=== PATIENT | female | born 1940 | race Caucasian/White ===

== ENCOUNTER 2023-06-21 13:06 | Inpatient (IN) | payer MEDICARE, OTHER ==
[~2023-06-21] VITALS: Ht 165.1 cm; Wt 65.8 kg
[2023-06-21] MEDS ORDERED: NA P133E RC (14:16)
[2023-06-21] MEDS ORDERED: LORA-258 PO (14:16)
[2023-06-21] MEDS ORDERED: MAGN400O6 PO (14:16)
[2023-06-21] MEDS ORDERED: QUET50TA PO (14:16)
[2023-06-21] MEDS ORDERED: DOCU100T2 PO (14:16)
[2023-06-21] MEDS ORDERED: TRAZ-257 PO (14:16)
[2023-06-21] MEDS ORDERED: ATOR10TA PO (14:16)
[2023-06-21] MEDS ORDERED: ACET-868 PO (14:16)
[2023-06-21] MEDS ORDERED: IBUP-1953 PO (14:16)
[2023-06-21] MEDS ORDERED: HYDR25SU33 RC (14:16)
[2023-06-21] MEDS ORDERED: CARV3.12 PO (14:16)
[2023-06-21] MEDS ORDERED: ACET-2605 PO ×2 (14:16)
[2023-06-21] MEDS ORDERED: LACT10SO5 PO (14:16)
[2023-06-21] MEDS ORDERED: VITA1TAB20 PO (14:16)
[2023-06-21] MEDS ORDERED: DULO60CA45 PO (14:16)
[2023-06-21] MEDS ORDERED: BISA10SU11 RC (14:16)
[2023-06-21 15:08] LABS: BASOPHILS % (AUTO) 0.7 % (0.0-2.0); EOSINOPHILS # (AUTO) 0.1 K/uL (0.0-0.7); EOSINOPHILS % (AUTO) 2.2 % (0.0-6.0); HEMATOCRIT 36 % (33-45); HEMOGLOBIN 12.3 g/dL (11.5-14.8); LYMPHOCYTES # (AUTO) 1.1 K/uL (0.8-4.8); LYMPHOCYTES % (AUTO) 23.9 % (20.0-44.0); MEAN CORPUSCULAR HEMOGLOBIN 32 PG (26.0-33.0); MEAN CORPUSCULAR HGB CONC 34 g/dl (31.0-36.0); MEAN CORPUSCULAR VOLUME 96 fL (82-100); MONOCYTES # (AUTO) 0.4 K/uL (0.1-1.30); MONOCYTES % (AUTO) 8.5 % (2.0-12.0); NEUTROPHILS % (AUTO) 64.7 % (43.0-81.0); PLATELET COUNT (AUTO) 302 K/uL (150-450); RED BLOOD CELL COUNT(AUTO) 3.78 MIL/uL (4.0-5.2); RED CELL DISTRIBUTION WIDTH 13.1 % (11.5-15.0); WHITE BLOOD COUNT (AUTO) 4.6 K/uL (4.3-11.0)
[2023-06-21 15:24] LABS: CALCIUM, SERUM 9.2 mg/dL (8.5-10.1); CARBON DIOXIDE 29 mmol/L (21-32); CHLORIDE 101 mmol/L (98-107); CREATININE 0.6 mg/dL (0.6-1.3); GLUCOSE 92 mg/dL (74-106); POTASSIUM 3.7 mmol/L (3.5-5.1); SODIUM SERUM 137 mmol/L (136-145); UREA NITROGEN, BLOOD 21 mg/dL (7-18)
[2023-06-21 15:28] LABS: ACETAMINOPHEN < 10 ug/ml (10-30); ALANINE AMINOTRANSFERASE 13 U/L (12-78); ALBUMIN 3.3 g/dL (3.4-5.0); ALCOHOL, BLOOD < 3 mg/dL (0-10); ALKALINE PHOSPHATASE 75 U/L (46-116); ASPARTATE AMINOTRANSFERASE 12 U/L (15-37); BILIRUBIN,DIRECT 0.2 mg/dL (0.0-0.2); BILIRUBIN,TOTAL 0.5 mg/dL (0.2-1.0); TOTAL PROTEIN, SERUM 6.8 g/dL (6.4-8.2)
[2023-06-21 15:29] LABS: SALICYLATE 2.2 mg/dL (2.8-20.0)
[2023-06-21] MEDS ORDERED: ZOLPIDEM TARTRATE 5 MG TABLET PO PRN (21:00)
[2023-06-21] MEDS ORDERED: LORAZEPAM 0.5 MG TABLET PO PRN (21:00)
[2023-06-21] MEDS ORDERED: BLOOD SUGAR DIAGNOSTIC 1 EACH STRIP IN ONE (21:00)
[2023-06-21] MEDS ORDERED: ACETAMINOPHEN 325 MG TABLET PO PRN ×2 (21:00→22:30)
[2023-06-21] MEDS ORDERED: ACETAMINOPHEN ES 500 MG TABLET PO PRN (22:30)
[2023-06-21] MEDS ORDERED: BISACODYL SUPP (10 MG) 10 MG/SUPP.RECT SUPP.RECT RC PRN (22:30)
[2023-06-21 23:47] VITALS: BP 135/69; TEMP 98.2
[2023-06-22] MEDS: ACETAMINOPHEN ES 500 MG TABLET PO PRN (04:11)
[2023-06-22 07:52] LABS: CREATININE 0.7 mg/dL (0.6-1.3)
[2023-06-22 08:00] VITALS: BP 176/97; TEMP 97.8; O2SAT 99
[2023-06-22] MEDS ORDERED: CARVEDILOL 3.125 MG TABLET PO SCH (09:00)
[2023-06-22] MEDS ORDERED: DULOXETINE HCL 30 MG CAPSULE.DR PO SCH (09:00)
[2023-06-22] MEDS: VITAMIN B COMP W-C 1 TAB TABLET PO SCH (09:09)
[2023-06-22] MEDS: DOCUSATE SODIUM 100 MG CAPSULE PO SCH ×2 (09:09→17:00)
[2023-06-22] MEDS: ESCITALOPRAM OXALATE (10 MG) 10 MG TABLET PO SCH (11:05)
[2023-06-22] MEDS: LORAZEPAM 1 MG TABLET PO PRN ×2 (11:05→19:54)
[2023-06-22] MEDS: OLANZAPINE 2.5 MG TABLET PO SCH ×2 (12:34→16:55)
[2023-06-22] MEDS: MEMANTINE HCL 5 MG TABLET PO SCH (20:14)
[2023-06-22] MEDS: CARVEDILOL 3.125 MG TABLET PO SCH (20:14)
[2023-06-22 20:32] VITALS: BP 150/82; TEMP 97.9; O2SAT 98
[2023-06-22] MEDS: ATORVASTATIN 10 MG TABLET PO SCH (21:29)
[2023-06-22] MEDS: MIRTAZAPINE 15 MG TABLET PO SCH (21:29)
[2023-06-22] MEDS ORDERED: TRAZODONE 50 MG TABLET PO SCH (22:00)
[2023-06-23 08:00] VITALS: BP 128/72; TEMP 98; O2SAT 94
[2023-06-23] MEDS: ESCITALOPRAM OXALATE (10 MG) 10 MG TABLET PO SCH (08:54)
[2023-06-23] MEDS: VITAMIN B COMP W-C 1 TAB TABLET PO SCH (08:54)
[2023-06-23] MEDS: DOCUSATE SODIUM 100 MG CAPSULE PO SCH ×2 (08:54→16:38)
[2023-06-23] MEDS: OLANZAPINE 2.5 MG TABLET PO SCH ×2 (08:54→16:38)
[2023-06-23] MEDS: MEMANTINE HCL 5 MG TABLET PO SCH ×2 (08:54→20:56)
[2023-06-23] MEDS: CARVEDILOL 3.125 MG TABLET PO SCH ×2 (08:55→16:39)
[2023-06-23] MEDS: busPIRone 5 MG TABLET PO SCH ×3 (11:57→16:38)
[2023-06-23] MEDS: LORAZEPAM 1 MG TABLET PO PRN (12:06)
[2023-06-23 16:00] VITALS: BP 148/76; TEMP 97.7; O2SAT 98
[2023-06-23 20:00] VITALS: BP 132/61; TEMP 98.4; O2SAT 99
[2023-06-23 22:00] VITALS: BP 132/61
[2023-06-23] MEDS: MIRTAZAPINE 15 MG TABLET PO SCH (22:00)
[2023-06-23] MEDS: ATORVASTATIN 10 MG TABLET PO SCH (22:01)
[2023-06-24 08:00] VITALS: BP 151/64; TEMP 97.6; O2SAT 96
[2023-06-24] MEDS: DOCUSATE SODIUM 100 MG CAPSULE PO SCH ×2 (08:39→16:08)
[2023-06-24] MEDS: ESCITALOPRAM OXALATE (10 MG) 10 MG TABLET PO SCH (08:41)
[2023-06-24] MEDS: OLANZAPINE 2.5 MG TABLET PO SCH ×2 (08:41→16:09)
[2023-06-24] MEDS: CARVEDILOL 3.125 MG TABLET PO SCH ×2 (08:42→16:09)
[2023-06-24] MEDS: MEMANTINE HCL 5 MG TABLET PO SCH ×2 (08:42→20:44)
[2023-06-24] MEDS: LORAZEPAM 1 MG TABLET PO PRN (08:42)
[2023-06-24] MEDS: busPIRone 5 MG TABLET PO SCH ×3 (08:42→16:08)
[2023-06-24] MEDS: VITAMIN B COMP W-C 1 TAB TABLET PO SCH (08:43)
[2023-06-24] MEDS: Z GUARD REMEDY 4 OZ OINT TP SCH ×2 (10:13→17:29)
[2023-06-24] MEDS: GABAPENTIN 100 MG CAPSULE PO SCH ×2 (12:11→16:10)
[2023-06-24 16:00] VITALS: BP 132/71; TEMP 97.8; O2SAT 96
[2023-06-24 20:17] VITALS: BP 107/52; TEMP 97.9; O2SAT 98
[2023-06-24 22:00] VITALS: BP 127/52
[2023-06-24] MEDS: MIRTAZAPINE 15 MG TABLET PO SCH (22:18)
[2023-06-24] MEDS: ATORVASTATIN 10 MG TABLET PO SCH (22:18)
[2023-06-25 08:00] VITALS: BP 159/87; TEMP 97.4; O2SAT 98
[2023-06-25] MEDS: ESCITALOPRAM OXALATE (10 MG) 10 MG TABLET PO SCH (09:01)
[2023-06-25] MEDS: busPIRone 5 MG TABLET PO SCH ×3 (09:01→17:09)
[2023-06-25] MEDS: GABAPENTIN 100 MG CAPSULE PO SCH ×3 (09:01→17:06)
[2023-06-25] MEDS: MEMANTINE HCL 5 MG TABLET PO SCH ×2 (09:01→21:10)
[2023-06-25] MEDS: CARVEDILOL 3.125 MG TABLET PO SCH ×2 (09:02→17:00)
[2023-06-25] MEDS: DOCUSATE SODIUM 100 MG CAPSULE PO SCH ×2 (09:02→17:06)
[2023-06-25] MEDS: OLANZAPINE 2.5 MG TABLET PO SCH ×2 (09:03→17:06)
[2023-06-25] MEDS: Z GUARD REMEDY 4 OZ OINT TP SCH ×2 (09:03→17:08)
[2023-06-25] MEDS: VITAMIN B COMP W-C 1 TAB TABLET PO SCH (09:03)
[2023-06-25 10:00] VITALS: BP 159/87
[2023-06-25 16:00] VITALS: BP 113/68; TEMP 97.4; O2SAT 94
[2023-06-25] MEDS: LACTULOSE 10 G/15 ML UDC (PYXIS) PO SCH (17:06)
[2023-06-25 20:00] VITALS: BP 111/65; TEMP 98.2; O2SAT 98
[2023-06-25 22:00] VITALS: BP 111/65
[2023-06-25] MEDS: MIRTAZAPINE 15 MG TABLET PO SCH (22:18)
[2023-06-25] MEDS: ATORVASTATIN 10 MG TABLET PO SCH (22:18)
[2023-06-26] MEDS ORDERED: Z GUARD REMEDY 4 OZ OINT TP PRN
[2023-06-26 08:00] VITALS: BP 132/63; TEMP 97.8; O2SAT 93
[2023-06-26] MEDS: LACTULOSE 10 G/15 ML UDC (PYXIS) PO SCH ×2 (08:41→17:13)
[2023-06-26] MEDS: DOCUSATE SODIUM 100 MG CAPSULE PO SCH ×2 (08:41→17:13)
[2023-06-26] MEDS: busPIRone 5 MG TABLET PO SCH ×3 (08:41→17:13)
[2023-06-26] MEDS: GABAPENTIN 100 MG CAPSULE PO SCH ×3 (08:42→17:13)
[2023-06-26] MEDS: ESCITALOPRAM OXALATE (10 MG) 10 MG TABLET PO SCH (08:42)
[2023-06-26] MEDS: OLANZAPINE 2.5 MG TABLET PO SCH ×2 (08:42→17:13)
[2023-06-26] MEDS: VITAMIN B COMP W-C 1 TAB TABLET PO SCH (08:42)
[2023-06-26] MEDS: CARVEDILOL 3.125 MG TABLET PO SCH ×2 (08:42→17:14)
[2023-06-26] MEDS: MEMANTINE HCL 5 MG TABLET PO SCH ×2 (08:42→21:51)
[2023-06-26] MEDS: Z GUARD REMEDY 4 OZ OINT TP SCH ×2 (08:43→17:14)
[2023-06-26] MEDS: LORAZEPAM 1 MG TABLET PO PRN (14:02)
[2023-06-26 16:00] VITALS: BP 130/68; TEMP 97.9; O2SAT 97
[2023-06-26 21:19] VITALS: BP 109/54; TEMP 98; O2SAT 98
[2023-06-26] MEDS: MIRTAZAPINE 15 MG TABLET PO SCH (21:51)
[2023-06-26] MEDS: ATORVASTATIN 10 MG TABLET PO SCH (21:51)
[2023-06-27 08:00] VITALS: BP 136/73; TEMP 97.7; O2SAT 99
[2023-06-27] MEDS: LACTULOSE 10 G/15 ML UDC (PYXIS) PO SCH ×2 (08:53→16:03)
[2023-06-27] MEDS: GABAPENTIN 100 MG CAPSULE PO SCH ×3 (08:53→16:04)
[2023-06-27] MEDS: MEMANTINE HCL 5 MG TABLET PO SCH ×2 (08:54→21:08)
[2023-06-27] MEDS: busPIRone 5 MG TABLET PO SCH ×3 (08:54→16:04)
[2023-06-27] MEDS: ESCITALOPRAM OXALATE (10 MG) 10 MG TABLET PO SCH (08:54)
[2023-06-27] MEDS: DOCUSATE SODIUM 100 MG CAPSULE PO SCH ×2 (08:54→16:04)
[2023-06-27] MEDS: OLANZAPINE 2.5 MG TABLET PO SCH ×2 (08:54→16:16)
[2023-06-27] MEDS: ACETAMINOPHEN ES 500 MG TABLET PO PRN ×2 (08:54→16:14)
[2023-06-27] MEDS: VITAMIN B COMP W-C 1 TAB TABLET PO SCH (08:55)
[2023-06-27] MEDS: CARVEDILOL 3.125 MG TABLET PO SCH ×2 (08:56→16:04)
[2023-06-27] MEDS: Z GUARD REMEDY 4 OZ OINT TP SCH ×2 (09:30→17:09)
[2023-06-27] MEDS: LORAZEPAM 1 MG TABLET PO PRN (13:02)
[2023-06-27 16:00] VITALS: BP 108/60; TEMP 97.7; O2SAT 99
[2023-06-27 19:52] VITALS: BP 116/76; TEMP 97.7; O2SAT 99
[2023-06-27] MEDS: ATORVASTATIN 10 MG TABLET PO SCH (21:08)
[2023-06-27] MEDS: MIRTAZAPINE 15 MG TABLET PO SCH (21:09)
[2023-06-28] MEDS: ACETAMINOPHEN ES 500 MG TABLET PO PRN (01:35)
[2023-06-28] MEDS: LORAZEPAM 1 MG TABLET PO PRN (01:36)
[2023-06-28 08:00] VITALS: BP 140/76; TEMP 97.9; O2SAT 98
[2023-06-28] MEDS: MEMANTINE HCL 5 MG TABLET PO SCH ×2 (09:11→21:16)
[2023-06-28] MEDS: OLANZAPINE 2.5 MG TABLET PO SCH ×2 (09:11→16:18)
[2023-06-28] MEDS: DOCUSATE SODIUM 100 MG CAPSULE PO SCH ×2 (09:11→16:17)
[2023-06-28] MEDS: VITAMIN B COMP W-C 1 TAB TABLET PO SCH (09:11)
[2023-06-28] MEDS: CARVEDILOL 3.125 MG TABLET PO SCH ×2 (09:11→16:18)
[2023-06-28] MEDS: LACTULOSE 10 G/15 ML UDC (PYXIS) PO SCH ×2 (09:11→16:17)
[2023-06-28] MEDS: busPIRone 5 MG TABLET PO SCH ×3 (09:11→16:17)
[2023-06-28] MEDS: GABAPENTIN 100 MG CAPSULE PO SCH ×3 (09:11→16:17)
[2023-06-28] MEDS: ESCITALOPRAM OXALATE (10 MG) 10 MG TABLET PO SCH (09:12)
[2023-06-28] MEDS: Z GUARD REMEDY 4 OZ OINT TP SCH ×2 (09:12→16:18)
[2023-06-28 16:00] VITALS: BP 130/68; TEMP 98.1; O2SAT 96
[2023-06-28] MEDS: MIRTAZAPINE 15 MG TABLET PO SCH (21:16)
[2023-06-28] MEDS: ATORVASTATIN 10 MG TABLET PO SCH (21:16)
[2023-06-28 21:29] VITALS: BP 102/60; TEMP 98.4; O2SAT 96
[2023-06-29 08:00] VITALS: BP 133/56; TEMP 98.7; O2SAT 98
[2023-06-29] MEDS: LACTULOSE 10 G/15 ML UDC (PYXIS) PO SCH ×2 (08:47→17:57)
[2023-06-29] MEDS: VITAMIN B COMP W-C 1 TAB TABLET PO SCH (08:48)
[2023-06-29] MEDS: DOCUSATE SODIUM 100 MG CAPSULE PO SCH ×2 (08:48→17:58)
[2023-06-29] MEDS: ESCITALOPRAM OXALATE (10 MG) 10 MG TABLET PO SCH (08:48)
[2023-06-29] MEDS: GABAPENTIN 100 MG CAPSULE PO SCH ×3 (08:48→17:58)
[2023-06-29] MEDS: MEMANTINE HCL 5 MG TABLET PO SCH ×2 (08:48→21:58)
[2023-06-29] MEDS: CARVEDILOL 3.125 MG TABLET PO SCH ×2 (08:48→17:58)
[2023-06-29] MEDS: OLANZAPINE 2.5 MG TABLET PO SCH ×2 (08:49→17:57)
[2023-06-29] MEDS: busPIRone 5 MG TABLET PO SCH ×3 (08:49→17:58)
[2023-06-29] MEDS: Z GUARD REMEDY 4 OZ OINT TP SCH ×2 (09:18→18:02)
[2023-06-29] MEDS: LORAZEPAM 1 MG TABLET PO PRN (10:54)
[2023-06-29 16:00] VITALS: BP 157/77; TEMP 97.9; O2SAT 99
[2023-06-29 20:31] VITALS: BP 107/62; TEMP 98.1; O2SAT 100
[2023-06-29] MEDS: ATORVASTATIN 10 MG TABLET PO SCH (21:58)
[2023-06-29] MEDS: MIRTAZAPINE 15 MG TABLET PO SCH (21:59)
[2023-06-30 08:00] VITALS: BP 119/98; TEMP 98.1; O2SAT 94
[2023-06-30] MEDS: VITAMIN B COMP W-C 1 TAB TABLET PO SCH (08:21)
[2023-06-30] MEDS: busPIRone 5 MG TABLET PO SCH ×3 (08:21→17:31)
[2023-06-30] MEDS: LACTULOSE 10 G/15 ML UDC (PYXIS) PO SCH ×2 (08:21→17:33)
[2023-06-30] MEDS: MEMANTINE HCL 5 MG TABLET PO SCH ×2 (08:21→21:26)
[2023-06-30] MEDS: OLANZAPINE 2.5 MG TABLET PO SCH ×3 (08:21→17:28)
[2023-06-30] MEDS: CARVEDILOL 3.125 MG TABLET PO SCH ×2 (08:22→17:31)
[2023-06-30] MEDS: DOCUSATE SODIUM 100 MG CAPSULE PO SCH ×2 (08:22→17:32)
[2023-06-30] MEDS: GABAPENTIN 100 MG CAPSULE PO SCH ×3 (08:22→17:29)
[2023-06-30] MEDS: ESCITALOPRAM OXALATE (10 MG) 10 MG TABLET PO SCH (08:23)
[2023-06-30] MEDS: Z GUARD REMEDY 4 OZ OINT TP SCH ×2 (09:44→17:40)
[2023-06-30 16:00] VITALS: BP 129/68; TEMP 97.5; O2SAT 98
[2023-06-30 20:00] VITALS: BP 126/72; TEMP 98.2; O2SAT 98
[2023-06-30] MEDS: MIRTAZAPINE 15 MG TABLET PO SCH (21:26)
[2023-06-30] MEDS: ATORVASTATIN 10 MG TABLET PO SCH (21:26)
[2023-07-01 08:00] VITALS: BP 139/74; TEMP 97.6; O2SAT 94
[2023-07-01] MEDS: LACTULOSE 10 G/15 ML UDC (PYXIS) PO SCH ×2 (09:05→16:30)
[2023-07-01] MEDS: CARVEDILOL 3.125 MG TABLET PO SCH ×2 (09:06→16:31)
[2023-07-01] MEDS: busPIRone 5 MG TABLET PO SCH ×3 (09:06→16:31)
[2023-07-01] MEDS: MEMANTINE HCL 5 MG TABLET PO SCH ×2 (09:06→21:25)
[2023-07-01] MEDS: DOCUSATE SODIUM 100 MG CAPSULE PO SCH ×2 (09:06→16:30)
[2023-07-01] MEDS: ESCITALOPRAM OXALATE (10 MG) 10 MG TABLET PO SCH (09:06)
[2023-07-01] MEDS: GABAPENTIN 100 MG CAPSULE PO SCH ×3 (09:07→16:31)
[2023-07-01] MEDS: OLANZAPINE 2.5 MG TABLET PO SCH ×3 (09:07→16:30)
[2023-07-01] MEDS: VITAMIN B COMP W-C 1 TAB TABLET PO SCH (09:07)
[2023-07-01] MEDS: Z GUARD REMEDY 4 OZ OINT TP SCH ×2 (09:13→16:31)
[2023-07-01] MEDS: ACETAMINOPHEN ES 500 MG TABLET PO PRN (10:19)
[2023-07-01 16:00] VITALS: BP 146/73; TEMP 97.6; O2SAT 100
[2023-07-01 20:00] VITALS: BP 127/71; TEMP 98.2; O2SAT 95
[2023-07-01] MEDS: ATORVASTATIN 10 MG TABLET PO SCH (21:25)
[2023-07-01] MEDS: MIRTAZAPINE 15 MG TABLET PO SCH (21:25)
[2023-07-02 08:00] VITALS: BP 124/65; TEMP 97.8; O2SAT 98
[2023-07-02] MEDS: LACTULOSE 10 G/15 ML UDC (PYXIS) PO SCH ×2 (08:24→16:39)
[2023-07-02] MEDS: VITAMIN B COMP W-C 1 TAB TABLET PO SCH (08:24)
[2023-07-02] MEDS: GABAPENTIN 100 MG CAPSULE PO SCH ×3 (08:25→16:37)
[2023-07-02] MEDS: DOCUSATE SODIUM 100 MG CAPSULE PO SCH ×2 (08:25→16:39)
[2023-07-02] MEDS: ESCITALOPRAM OXALATE (10 MG) 10 MG TABLET PO SCH (08:25)
[2023-07-02] MEDS: CARVEDILOL 3.125 MG TABLET PO SCH ×2 (08:25→16:39)
[2023-07-02] MEDS: busPIRone 5 MG TABLET PO SCH ×3 (08:25→16:40)
[2023-07-02] MEDS: MEMANTINE HCL 5 MG TABLET PO SCH ×2 (08:25→21:29)
[2023-07-02] MEDS: OLANZAPINE 2.5 MG TABLET PO SCH ×3 (08:27→16:37)
[2023-07-02] MEDS: Z GUARD REMEDY 4 OZ OINT TP SCH ×2 (08:27→16:40)
[2023-07-02] MEDS: LORAZEPAM 1 MG TABLET PO PRN (09:54)
[2023-07-02 16:00] VITALS: BP 124/62; TEMP 98.1; O2SAT 96
[2023-07-02 20:00] VITALS: BP 118/67; TEMP 97.7; O2SAT 97
[2023-07-02] MEDS: ATORVASTATIN 10 MG TABLET PO SCH (21:28)
[2023-07-02] MEDS: MIRTAZAPINE 15 MG TABLET PO SCH (21:29)
[2023-07-03] MEDS: ACETAMINOPHEN ES 500 MG TABLET PO PRN (02:29)
[2023-07-03 08:00] VITALS: BP 100/55; TEMP 98.2; O2SAT 99
[2023-07-03] MEDS: GABAPENTIN 100 MG CAPSULE PO SCH ×3 (08:14→17:07)
[2023-07-03] MEDS: busPIRone 5 MG TABLET PO SCH ×3 (08:14→17:07)
[2023-07-03] MEDS: VITAMIN B COMP W-C 1 TAB TABLET PO SCH (08:14)
[2023-07-03] MEDS: OLANZAPINE 2.5 MG TABLET PO SCH ×3 (08:14→17:07)
[2023-07-03] MEDS: DOCUSATE SODIUM 100 MG CAPSULE PO SCH ×2 (08:14→17:07)
[2023-07-03] MEDS: LACTULOSE 10 G/15 ML UDC (PYXIS) PO SCH ×2 (08:14→17:07)
[2023-07-03] MEDS: MEMANTINE HCL 5 MG TABLET PO SCH ×2 (08:14→21:24)
[2023-07-03] MEDS: ESCITALOPRAM OXALATE (10 MG) 10 MG TABLET PO SCH (08:15)
[2023-07-03] MEDS: CARVEDILOL 3.125 MG TABLET PO SCH ×2 (08:22→17:00)
[2023-07-03] MEDS: Z GUARD REMEDY 4 OZ OINT TP SCH ×2 (09:32→17:09)
[2023-07-03 16:00] VITALS: BP 104/59; TEMP 98.2; O2SAT 97
[2023-07-03 21:00] VITALS: BP 101/58; TEMP 98.1; O2SAT 96
[2023-07-03] MEDS: MIRTAZAPINE 15 MG TABLET PO SCH (21:24)
[2023-07-03] MEDS: ATORVASTATIN 10 MG TABLET PO SCH (21:24)
[2023-07-04 08:00] VITALS: BP 103/55; TEMP 98.6; O2SAT 97
[2023-07-04] MEDS: DOCUSATE SODIUM 100 MG CAPSULE PO SCH ×2 (08:31→16:49)
[2023-07-04] MEDS: CARVEDILOL 3.125 MG TABLET PO SCH ×2 (08:31→17:03)
[2023-07-04] MEDS: GABAPENTIN 100 MG CAPSULE PO SCH ×3 (08:32→16:50)
[2023-07-04] MEDS: MEMANTINE HCL 5 MG TABLET PO SCH ×2 (08:32→21:20)
[2023-07-04] MEDS: ACETAMINOPHEN ES 500 MG TABLET PO PRN (08:32)
[2023-07-04] MEDS: LACTULOSE 10 G/15 ML UDC (PYXIS) PO SCH ×2 (08:32→16:49)
[2023-07-04] MEDS: ESCITALOPRAM OXALATE (10 MG) 10 MG TABLET PO SCH (08:32)
[2023-07-04] MEDS: VITAMIN B COMP W-C 1 TAB TABLET PO SCH (08:32)
[2023-07-04] MEDS: OLANZAPINE 2.5 MG TABLET PO SCH ×3 (08:32→16:50)
[2023-07-04] MEDS: busPIRone 5 MG TABLET PO SCH ×3 (08:32→16:49)
[2023-07-04] MEDS: Z GUARD REMEDY 4 OZ OINT TP SCH ×2 (09:51→16:58)
[2023-07-04 16:00] VITALS: BP 133/56; TEMP 97.9; O2SAT 99
[2023-07-04 20:46] VITALS: BP 136/78; TEMP 98.1; O2SAT 98
[2023-07-04] MEDS: ATORVASTATIN 10 MG TABLET PO SCH (21:20)
[2023-07-04] MEDS: MIRTAZAPINE 15 MG TABLET PO SCH (21:20)
[2023-07-05] MEDS: ACETAMINOPHEN ES 500 MG TABLET PO PRN (05:31)
[2023-07-05 08:00] VITALS: BP 128/64; TEMP 98.7; O2SAT 98
[2023-07-05] MEDS: ESCITALOPRAM OXALATE (10 MG) 10 MG TABLET PO SCH (08:41)
[2023-07-05] MEDS: DOCUSATE SODIUM 100 MG CAPSULE PO SCH ×2 (08:41→16:27)
[2023-07-05] MEDS: LACTULOSE 10 G/15 ML UDC (PYXIS) PO SCH ×2 (08:41→16:27)
[2023-07-05] MEDS: CARVEDILOL 3.125 MG TABLET PO SCH ×2 (08:42→16:27)
[2023-07-05] MEDS: MEMANTINE HCL 5 MG TABLET PO SCH ×2 (08:42→21:06)
[2023-07-05] MEDS: GABAPENTIN 100 MG CAPSULE PO SCH ×3 (08:42→16:26)
[2023-07-05] MEDS: busPIRone 5 MG TABLET PO SCH ×3 (08:42→16:27)
[2023-07-05] MEDS: OLANZAPINE 2.5 MG TABLET PO SCH ×3 (08:42→16:27)
[2023-07-05] MEDS: VITAMIN B COMP W-C 1 TAB TABLET PO SCH (08:42)
[2023-07-05] MEDS: Z GUARD REMEDY 4 OZ OINT TP SCH ×2 (09:21→16:28)
[2023-07-05 16:00] VITALS: BP 150/85; TEMP 98.7; O2SAT 99
[2023-07-05 20:04] VITALS: BP 99/61; TEMP 97.8; O2SAT 100
[2023-07-05] MEDS: ATORVASTATIN 10 MG TABLET PO SCH (21:06)
[2023-07-05] MEDS: MIRTAZAPINE 15 MG TABLET PO SCH (21:06)
[2023-07-06 08:00] VITALS: BP 151/73; TEMP 98.7; O2SAT 99
[2023-07-06] MEDS: DOCUSATE SODIUM 100 MG CAPSULE PO SCH (08:17)
[2023-07-06] MEDS: ESCITALOPRAM OXALATE (10 MG) 10 MG TABLET PO SCH (08:17)
[2023-07-06] MEDS: VITAMIN B COMP W-C 1 TAB TABLET PO SCH (08:17)
[2023-07-06] MEDS: LORAZEPAM 1 MG TABLET PO PRN (08:17)
[2023-07-06] MEDS: MEMANTINE HCL 5 MG TABLET PO SCH (08:17)
[2023-07-06 08:20] VITALS: BP 151/73
[2023-07-06] MEDS: CARVEDILOL 3.125 MG TABLET PO SCH (08:20)
[2023-07-06] MEDS: GABAPENTIN 100 MG CAPSULE PO SCH ×2 (08:21→12:06)
[2023-07-06] MEDS: LACTULOSE 10 G/15 ML UDC (PYXIS) PO SCH (08:21)
[2023-07-06] MEDS: busPIRone 5 MG TABLET PO SCH ×2 (08:21→12:06)
[2023-07-06] MEDS: OLANZAPINE 2.5 MG TABLET PO SCH ×2 (08:21→13:00)
[2023-07-06] MEDS: Z GUARD REMEDY 4 OZ OINT TP SCH (11:51)
[2023-07-06] MEDS: ACETAMINOPHEN ES 500 MG TABLET PO PRN (12:06)
== END 2023-07-06 13:00 | DRG 885 ==
LOC: ER 13:20 → GPS 20:07
PROVIDERS: ADMIT Psychiatry & Neurology Psychiatry; ATTEND Nurse Practitioner Family
DX: F33.3 Major depressive disorder, recurrent, severe with psychotic symptoms (principal); R45.851 Suicidal ideations; F03.92 Unspecified dementia, unspecified severity, with psychotic disturbance; F03.93 Unspecified dementia, unspecified severity, with mood disturbance; E44.1 Mild protein-calorie malnutrition; I10 Essential (primary) hypertension; M19.90 Unspecified osteoarthritis, unspecified site; Z79.899 Other long term (current) drug therapy; E88.09 Other disorders of plasma-protein metabolism, not elsewhere classified; Z88.1 Allergy status to other antibiotic agents; Z88.8 Allergy status to other drugs, medicaments and biological substances; Z73.6 Limitation of activities due to disability; G25.2 Other specified forms of tremor; F39 Unspecified mood [affective] disorder
CPT/HCPCS: 36415; 80048-TC; 80061-TC; 80076-TC; 82565-TC; 82962-TC; 85025-TC; 87081-TC; 97110-TC; 97530-TC; G0480